=== PATIENT | female | born 1950 | race Caucasian/White ===

== ENCOUNTER → 2017-12-20 | Outpatient (CLI) | payer MEDICARE, OTHER | LOC: LAB 14:30 | PROVIDERS: ATTEND Advanced Practice Midwife | DX: E07.9 Disorder of thyroid, unspecified (principal) | CPT/HCPCS: 36415; 84443 ==

== ENCOUNTER 2018-08-23 15:05 | Emergency (ER) | payer MEDICARE, OTHER ==
--- NOTE | 2018-08-23 15:12 | ER Report ---
History and Physical Time Seen By MD: 15:12 HPI/ROS CHIEF COMPLAINT: Confusion HISTORY OF PRESENT ILLNESS: 67-year-old female patient presents to the emergency room with complaint of contusion. Patient states that she has been feeling "off" today. She states this started about 11:00 when she went to a doctor's appointment. She states when she was there she started having a hard time focusing on what she needed to do. She states that she wanted to talk to the provider about her medications but was unable to recall the names or the dosages of her medications. Patient states that she also has been having episodes were feels like she is dreaming, although she is awake and aware of what's going on around her. She denies any weakness, but states she does have a mild headache and has a hard time recalling things. Patient denies having any fevers, chills, nausea, vomiting or diarrhea. 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 She denies any changes to her medications, she denies any changes in her activity levels. She states she did get up earlier to teach, however she was also going to bed earlier as well. REVIEW OF SYSTEMS: Respiratory: No cough, no dyspnea. Cardiovascular: No chest pain, no palpitations. Gastrointestinal: No vomiting, no abdominal pain. Musculoskeletal: No back pain. Allergies: Coded Allergies: No Known Drug Allergies (Unverified , 08/23/18) Home Meds Active Scripts Thiamine Hcl (VITAMIN B-1) 100 Mg Tablet, 100 MG PO DAILY, #15 TAB Prov:ELLIOT COLON IRVIN 08/23/18 Past Medical/Surgical History Patient has a past medical history of essential tremor, hypothyroidism, depression, skin cancer. Patient has surgical history of left inguinal hernia repair, section 2, left ankle tendon repair, laminectomy, bilateral carpal tunnel release Reviewed Nurses Notes: Yes Constitutional Vital Sign - Last 24 Hours 08/23/18 08/23/18 08/23/18 08/23/18 15:05 15:05 15:10 15:13 Pulse 64 64 B/P (MAP) 174/93 (120) Pulse Ox 90 90 81 08/23/18 08/23/18 08/23/18 08/23/18 15:30 15:40 15:45 15:50 Pulse 64 65 69 B/P (MAP) 201/102 (135) Pulse Ox 95 93 94 08/23/18 08/23/18 08/23/18 08/23/18 15:55 16:00 16:05 16:05 Pulse 69 63 72 72 Pulse Ox 94 93 79 79 08/23/18 08/23/18 08/23/18 08/23/18 16:10 16:14 16:14 16:30 Pulse 65 B/P (MAP) 144/74 (97) 144/74 (97) 157/97 (117) Pulse Ox 95 08/23/18 08/23/18 08/23/18 08/23/18 16:40 17:10 17:40 18:00 Pulse ??? 69 72 B/P (MAP) 138/99 (112) Pulse Ox 99 98 08/23/18 08/23/18 08/23/18 08/23/18 18:30 18:40 18:45 18:50 Pulse 72 70 77 Resp 16 25 17 B/P (MAP) 155/90 (111) Pulse Ox 91 93 89 08/23/18 08/23/18 18:55 19:05 Resp 27 Pulse Ox 87 93 Physical Exam General Appearance: The patient is alert, has no immediate need for airway protection and no current signs of toxicity. Eyes: Pupils equal and round no injection. Extraocular movements intact. Respiratory: Chest is non tender, lungs are clear to auscultation. Cardiac: regular rate and rhythm Gastrointestinal: Abdomen is soft and non tender, no masses, bowel sounds normal. Musculoskeletal: Neck: Neck is supple and non tender. Extremities have full range of motion and are non tender. Skin: No rashes or lesions. Neuro: Patient is alert and oriented 4, cranial nerves II through XII grossly intact. Patient was able to complete 3 word recall 3/3 at zero minutes and 2/3 at 5 minutes. Patient was unable to recall the third word, and even when reminded she was unable to recognize that that was one of the words. Serial sevens patient was unable to remember throughout the exercise that she subtracting by 7. DIFFERENTIAL DIAGNOSIS: After history and physical exam differential diagnosis was considered for altered mental status including but not limited to hypoglycemia, infectious process, electrolyte abnormality, head injury and intoxicants. Medical Decision Making Data Points Result Diagram: 08/23/18 1519 08/23/18 1519 Laboratory Hematology Test 08/23/18 00:00 08/23/18 15:19 08/23/18 15:43 08/23/18 19:09 Serum Alcohol < 10 mg/dl Red Blood Count 4.29 M/uL (4.17-5.56) Mean Corpuscular Volume 100.9 fL (80.0-96.0) Mean Corpuscular Hemoglobin 33.8 pg (26.0-33.0) Mean Corpuscular Hemoglobin Concent 33.5 g/dL (32.0-36.0) Red Cell Distribution Width 13.7 % (11.5-14.5) Mean Platelet Volume 7.8 fL (7.2-11.1) Neutrophils (%) (Auto) 49.6 % (39.4-72.5) Lymphocytes (%) (Auto) 38.9 % (17.6-49.6) Monocytes (%) (Auto) 8.3 % (4.1-12.4) Eosinophils (%) (Auto) 2.3 % (0.4-6.7) Basophils (%) (Auto) 0.9 % (0.3-1.4) Nucleated RBC Relative Count (auto) 0.1 /100WBC Neutrophils # (Auto) 2.5 K/uL (2.0-7.4) Lymphocytes # (Auto) 1.9 K/uL (1.3-3.6) Monocytes # (Auto) 0.4 K/uL (0.3-1.0) Eosinophils # (Auto) 0.1 K/uL (0.0-0.5) Basophils # (Auto) 0.0 K/uL (0.0-0.1) Nucleated RBC Absolute Count (auto) 0.01 K/uL Peripheral Blood Smear No Y/N Prothrombin Time 12.9 seconds (12.0-14.4) Prothromb Time International Ratio 0.97 Activated Partial Thromboplast Time 28 seconds (23-35) Sodium Level 138 mmol/L (137-145) Potassium Level 4.1 mmol/L (3.5-5.0) Chloride Level 108 mmol/L (98-107) Carbon Dioxide Level 26 mmol/L (22-31) Blood Urea Nitrogen 19 mg/dl (7-18) Creatinine 0.70 mg/dl (0.52-1.04) Glomerular Filtration Rate Calc > 60.0 Random Glucose 112 mg/dl (75-110) Calcium Level 9.6 mg/dl (8.4-10.2) Total Bilirubin 0.4 mg/dl (0.2-1.3) Aspartate Amino Transf (AST/SGOT) 29 U/L (0-35) Alanine Aminotransferase (ALT/SGPT) 21 U/L (0-56) Alkaline Phosphatase 91 U/L (0-126) Troponin I < 0.012 ng/ml Total Protein 7.4 g/dl (6.3-8.2) Albumin 4.3 g/dl (3.5-5.0) Urine Color Straw Urine Clarity Clear Urine pH 6.0 pH (4.8-9.5) Urine Specific [place] 1.005 Urine Protein Negative mg/dL (NEGATIVE) Urine Glucose (UA) Negative mg/dL (NEGATIVE) Urine Ketones Negative mg/dL (NEGATIVE) Urine Blood Negative (NEGATIVE) Urine Nitrite Negative (NEGATIVE) Urine Bilirubin Negative (NEGATIVE) Urine Urobilinogen Negative mg/dL (0.2-1.9) Urine Leukocyte Esterase Negative (NEGATIVE) Urine RBC <1 /HPF (0-2/HPF) Urine WBC <1 /HPF (0-5/HPF) Urine Squamous Epithelial Cells Few /LPF (</=FEW) Urine Bacteria Negative /HPF (NONE-FEW) Urine Mucus None /HPF (NONE-FEW) Urine Opiates Screen Negative Urine Barbiturates Screen Positive Ur Tricyclic Antidepressants Screen Negative Urine Phencyclidine Screen Negative Urine Amphetamines Screen Negative Urine Benzodiazepines Screen Negative Urine Cocaine Screen Negative Urine Cannabinoids Screen Negative Chemistry Test 08/23/18 00:00 08/23/18 15:19 08/23/18 15:43 08/23/18 19:09 Serum Alcohol < 10 mg/dl White Blood Count 5.0 k/uL (4.5-11.0) Red Blood Count 4.29 M/uL (4.17-5.56) Hemoglobin 14.5 g/dL (12.0-16.0) Hematocrit 43.3 % (34.0-47.0) Mean Corpuscular Volume 100.9 fL (80.0-96.0) Mean Corpuscular Hemoglobin 33.8 pg (26.0-33.0) Mean Corpuscular Hemoglobin Concent 33.5 g/dL (32.0-36.0) Red Cell Distribution Width 13.7 % (11.5-14.5) Platelet Count 226 K/uL (150-450) Mean Platelet Volume 7.8 fL (7.2-11.1) Neutrophils (%) (Auto) 49.6 % (39.4-72.5) Lymphocytes (%) (Auto) 38.9 % (17.6-49.6) Monocytes (%) (Auto) 8.3 % (4.1-12.4) Eosinophils (%) (Auto) 2.3 % (0.4-6.7) Basophils (%) (Auto) 0.9 % (0.3-1.4) Nucleated RBC Relative Count (auto) 0.1 /100WBC Neutrophils # (Auto) 2.5 K/uL (2.0-7.4) Lymphocytes # (Auto) 1.9 K/uL (1.3-3.6) Monocytes # (Auto) 0.4 K/uL (0.3-1.0) Eosinophils # (Auto) 0.1 K/uL (0.0-0.5) Basophils # (Auto) 0.0 K/uL (0.0-0.1) Nucleated RBC Absolute Count (auto) 0.01 K/uL Peripheral Blood Smear No Y/N Prothrombin Time 12.9 seconds (12.0-14.4) Prothromb Time International Ratio 0.97 Activated Partial Thromboplast Time 28 seconds (23-35) Glomerular Filtration Rate Calc > 60.0 Calcium Level 9.6 mg/dl (8.4-10.2) Total Bilirubin 0.4 mg/dl (0.2-1.3) Aspartate Amino Transf (AST/SGOT) 29 U/L (0-35) Alanine Aminotransferase (ALT/SGPT) 21 U/L (0-56) Alkaline Phosphatase 91 U/L (0-126) Troponin I < 0.012 ng/ml Total Protein 7.4 g/dl (6.3-8.2) Albumin 4.3 g/dl (3.5-5.0) Urine Color Straw Urine Clarity Clear Urine pH 6.0 pH (4.8-9.5) Urine Specific [place] 1.005 Urine Protein Negative mg/dL (NEGATIVE) Urine Glucose (UA) Negative mg/dL (NEGATIVE) Urine Ketones Negative mg/dL (NEGATIVE) Urine Blood Negative (NEGATIVE) Urine Nitrite Negative (NEGATIVE) Urine Bilirubin Negative (NEGATIVE) Urine Urobilinogen Negative mg/dL (0.2-1.9) Urine Leukocyte Esterase Negative (NEGATIVE) Urine RBC <1 /HPF (0-2/HPF) Urine WBC <1 /HPF (0-5/HPF) Urine Squamous Epithelial Cells Few /LPF (</=FEW) Urine Bacteria Negative /HPF (NONE-FEW) Urine Mucus None /HPF (NONE-FEW) Urine Opiates Screen Negative Urine Barbiturates Screen Positive Ur Tricyclic Antidepressants Screen Negative Urine Phencyclidine Screen Negative Urine Amphetamines Screen Negative Urine Benzodiazepines Screen Negative Urine Cocaine Screen Negative Urine Cannabinoids Screen Negative Coagulation Test 08/23/18 15:19 Prothrombin Time 12.9 seconds Prothromb Time International Ratio 0.97 Activated Partial Thromboplast Time 28 seconds Toxicology Test 08/23/18 00:00 08/23/18 15:43 Serum Alcohol < 10 mg/dl Urine Opiates Screen Negative Urine Barbiturates Screen Positive Ur Tricyclic Antidepressants Screen Negative Urine Phencyclidine Screen Negative Urine Amphetamines Screen Negative Urine Benzodiazepines Screen Negative Urine Cocaine Screen Negative Urine Cannabinoids Screen Negative Urinalysis Test 08/23/18 15:43 Urine Color Straw Urine Clarity Clear Urine pH 6.0 pH (4.8-9.5) Urine Specific [place] 1.005 Urine Protein Negative mg/dL (NEGATIVE) Urine Glucose (UA) Negative mg/dL (NEGATIVE) Urine Ketones Negative mg/dL (NEGATIVE) Urine Blood Negative (NEGATIVE) Urine Nitrite Negative (NEGATIVE) Urine Bilirubin Negative (NEGATIVE) Urine Urobilinogen Negative mg/dL (0.2-1.9) Urine Leukocyte Esterase Negative (NEGATIVE) Urine RBC <1 /HPF (0-2/HPF) Urine WBC <1 /HPF (0-5/HPF) Urine Squamous Epithelial Cells Few /LPF (</=FEW) Urine Bacteria Negative /HPF (NONE-FEW) Urine Mucus None /HPF (NONE-FEW) EKG/Imaging Imaging Study: MRI of the brain without and with gadolinium contrast. Indication: Confusion, headache Comparison study: None Contrast used: 15 mL MultiHance gadolinium contrast Technique: Multiplanar MRI sequences were obtained through the brain before and after the administration of gadolinium contrast. The examination demonstrates no evidence of acute intracranial hemorrhage. There is no evidence of extra-axial collection or hydrocephalus. There are scattered areas of high T2-weighted signal present within the central and peripheral supratentorial white matter. These areas are nonspecific in appearance. The pituitary gland is unremarkable in appearance. There is no evidence of abnormality of the pineal gland. A diffusion-weighted sequence was performed and demonstrates no evidence of active ischemia. There is no evidence of active infarct The orbits are unremarkable. The paranasal sinuses are unremarkable Following the administration of gadolinium contrast, there is no abnormal intracranial contrast enhancement. IMPRESSION: No acute intracranial abnormality identified. Specifically, there is no evidence of active ischemia. Report Dictated By: Jarett Cancino at 08/23/2018 5:45 PM Report E-Signed By: Jarett Cancino at 08/23/2018 5:50 PM Exam type: CHEST PA LAT History: Confusion Comparison: None. Findings: The lungs are free of acute effusions, infiltrates or edema. There is no evidence of a pneumothorax or pneumomediastinum. The cardiac silhouette is normal in size. The trachea is in midline. There are mild spondylotic changes of the thoracic spine. IMPRESSION: 1. No acute cardiopulmonary process is seen Report Dictated By: Audra Del Cid MD at 08/23/2018 4:09 PM Report E-Signed By: Audra Del Cid MD at 08/23/2018 4:11 PM EXAMINATION: CT Head without intravenous contrast HISTORY: Confusion. TECHNIQUE: Axial images were obtained from the skull base to the vertex without intravenous contrast. Sagittal and coronal reformatted images are also submitted. One of the following dose optimization techniques was utilized in the performance of this exam: Automated exposure control; adjustment of the mA and/or kV according to the patient's size; or use of an iterative reconstruction technique. Specific details can be referenced in the facility's radiology CT exam operational policy. COMPARISON: None available. FINDINGS: Brain volume: Normal. Ventricles: Negative. Acute ischemic changes: None. Hemorrhage: None. Masses / edema: None. Cruz-white: Negative. White matter: Negative. Vessels: Negative. Extra-axial: Negative. Calvarium / skull base: Small radiopaque foreign bodies in the bilateral frontal bone (series 3, images 60 and 62). Visualized sinuses / orbits: Leftward nasal septal deviation and spurring. IMPRESSION: 1. No acute intracranial abnormality. 2. Small radiopaque foreign bodies in the bilateral frontal bone (series 3, images 60 and 62). 3. Leftward nasal septal deviation and spurring. Report Dictated By: Richar Swanson MD at 08/23/2018 4:08 PM Report E-Signed By: Richar Swanson MD at 08/23/2018 4:15 PM ED Course/Re-evaluation ED Course Patient was admitted to an exam room, history and physical were obtained. Differential diagnoses were considered. On examination lungs are clear, heart was regular, abdomen soft nontender. Cranial nerves II through XII grossly intact. Patient did have some difficulty with short-term memory. She was able to complete 3 word recall 3/3 at zero minutes and 2/3 at 5 minutes. Patient was unable to recall the third word while I gave her the third word she said "No, that's no it". Patient also became confused when doing serial sevens, forgetting that she is supposed tract by 7. Patient was alert and oriented 4. A CBC, CMP, urinalysis, EKG, troponin, CT scan of the head were done. The labs were unremarkable except the patient had an elevated MCV. I discussed this with the patient and she states that she believes that that has been like that for years. With the patient having the problems with short-term memory and negative CT scan I did opt to go ahead and do an MRI of the brain. Results of the MRI were negative. I discussed findings with the patient. I did call and talk with neurology, Dr. Sandy, at [facility]. His recommendation was to go ahead and look for reversible causes short-term memory loss, such as B-12, TSH, folate. He recommended treating with thiamine. I did discuss the case with Dr. Sawyer, hospitalist, about admission for monitoring. He feels there is anything to monitor, stating there is no treatment that was going to be given. Patient had already made it clear that she would prefer to be discharged to stay in a hotel. Dr. Harrington felt that would be reasonable thing to do at this time. He recommended going ahead and treating her with thiamine, checking labs. I discussed this with the patient who verbalized understanding and agreement. We did discuss decreasing her primidone to 2 tablets twice a day as opposed to 3 times a day. She states that they're hoping to get her into a clinical trial and would prefer to hold off any medication changes. Decision to Disposition Date: Aug 23, 2018 Decision to Disposition Time: 19:20 Depart Departure Latest Vital Signs Vital Signs Date Time Temp Pulse Resp B/P (MAP) Pulse Ox O2 Delivery O2 Flow Rate FiO2 08/23/18 19:05 93 08/23/18 18:55 27 08/23/18 18:50 77 08/23/18 18:30 155/90 (111) Impression: Primary Impression: Poor short term memory Condition: Condition Unchanged Disposition: HOME OR SELF-CARE New Scripts Thiamine Hcl (VITAMIN B-1) 100 Mg Tablet 100 MG PO DAILY, #15 TAB Prov: ELLIOT COLON 08/23/18 Patient Instructions: GENERAL ER DISCHARGE INSTRUCTIONS Additional Instructions: Call and talk with your neurologist about this. Discuss about the Primidone and alcohol and this episode. Return to the ER if condition worsens. Take the Thiamine as directed. Follow up with your primary care provider in the next 1-2 weeks. ELLIOT COLON Aug 23, 2018 15:12
[2018-08-23] MEDS ORDERED: NS(*) 0.9% 500 ML BAG 500 ML IV ONE (15:32)
[2018-08-23 15:49] LABS: PLATELET COUNT, AUTOMATED 226 K/uL (150-450)
[2018-08-23 15:52] LABS: INR 0.97
--- NOTE | 2018-08-23 15:57 | EKG ---
FACILITY: [facility] - [place] PATIENT NAME: KAEL AKINS : [id number] MR: [id number] V: [id number] EXAM DATE: ORDERING PHYSICIAN: ELLIOT COLON TECHNOLOGIST: Test Reason : low potassium Blood Pressure : / mmHG Vent. Rate : 071 BPM Atrial Rate : 071 BPM P-R Int : 170 ms QRS Dur : 072 ms QT Int : 426 ms P-R-T Axes : 065 024 050 degrees QTc Int : 462 ms Normal sinus rhythm Normal ECG No previous ECGs available Confirmed by MÓNICA PLUMMER ([id number]) on 08/24/2018 1:15:39 AM Referred By: Confirmed By:MÓNICA PLUMMER
[2018-08-23] MEDS ORDERED: ONDANSETRON 4 MG/2 ML VIAL IVP ONE (16:00)
--- NOTE | 2018-08-23 16:16 | RADIOLOGY IMAGING REPORT ---
FACILITY: [facility] PATIENT NAME: Frieda Conner : 1950 MR: [id number] V: [id number] EXAM DATE: ORDERING PHYSICIAN: ELLIOT COLON TECHNOLOGIST: Location: [facility] [place] Patient: Frieda Conner : 1950 Visit/Account:[id number] Date of Sevice: 08/23/2018 Exam type: CHEST PA LAT History: Confusion Comparison: None. Findings: The lungs are free of acute effusions, infiltrates or edema. There is no evidence of a pneumothorax or pneumomediastinum. The cardiac silhouette is normal in size. The trachea is in midline. There a re mild spondylotic changes of the thoracic spine. IMPRESSION: 1. No acute cardiopulmonary process is seen Report Dictated By: Audra Del Cid MD at 08/23/2018 4:09 PM Report E-Signed By: Audra Del Cid MD at 08/23/2018 4:11 PM WSN:[id number]
--- NOTE | 2018-08-23 16:20 | RADIOLOGY IMAGING REPORT ---
FACILITY: [facility] - [place] PATIENT NAME: Frieda Conner : 1950 MR: [id number] V: [id number] EXAM DATE: ORDERING PHYSICIAN: ELLIOT COLON TECHNOLOGIST: Location: [facility] - [place] Patient: Frieda Conner : 1950 Visit/Account:[id number] Date of Sevice: 08/23/2018 EXAMINATION: CT Head without intravenous contrast HISTORY: Confusion. TECHNIQUE: Axial images were obtained from the skull base to the vertex without intravenous contrast . Sagittal and coronal reformatted images are also submitted. One of the following dose optimization techniques was utilized in the performance of this exam: Autom ated exposure control; adjustment of the mA and/or kV according to the patient's size; or use of an i terative reconstruction technique. Specific details can be referenced in the facility's radiology C T exam operational policy. COMPARISON: None available. FINDINGS: Brain volume: Normal. Ventricles: Negative. Acute ischemic changes: None. Hemorrhage: None. Masses / edema: None. Cruz-white: Negative. White matter: Negative. Vessels: Negative. Extra-axial: Negative. Calvarium / skull base: Small radiopaque foreign bodies in the bilateral frontal bone (series 3, harish ges 60 and 62). Visualized sinuses / orbits: Leftward nasal septal deviation and spurring. IMPRESSION: 1. No acute intracranial abnormality. 2. Small radiopaque foreign bodies in the bilateral frontal bone (series 3, images 60 and 62). 3. Leftward nasal septal deviation and spurring. Report Dictated By: Richar Swanson MD at 08/23/2018 4:08 PM Report E-Signed By: Richar Swanson MD at 08/23/2018 4:15 PM WSN:[id number]
[2018-08-23] MEDS ORDERED: GADOBENATE 529MG/1ML 15ML VIAL IVP ONE (16:42)
--- NOTE | 2018-08-23 17:53 | RADIOLOGY IMAGING REPORT ---
FACILITY: [facility] PATIENT NAME: Frieda Conner : 1950 MR: [id number] V: [id number] EXAM DATE: ORDERING PHYSICIAN: ELLIOT COLON TECHNOLOGIST: Location: [facility] Patient: Frieda Conner : 1950 Visit/Account:[id number] Date of Sevice: 08/23/2018 Study: MRI of the brain without and with gadolinium contrast. Indication: Confusion, headache Comparison study: None Contrast used: 15 mL MultiHance gadolinium contrast Technique: Multiplanar MRI sequences were obtained through the brain before and after the administrat ion of gadolinium contrast. The examination demonstrates no evidence of acute intracranial hemorrhage. There is no evidence of ex tra-axial collection or hydrocephalus. There are scattered areas of high T2-weighted signal present within the central and peripheral suprat entorial white matter. These areas are nonspecific in appearance. The pituitary gland is unremarkable in appearance. There is no evidence of abnormality of the pineal gland. A diffusion-weighted sequence was performed and demonstrates no evidence of active ischemia. There is no evidence of active infarct The orbits are unremarkable. The paranasal sinuses are unremarkable Following the administration of gadolinium contrast, there is no abnormal intracranial contrast enhan cement. IMPRESSION: No acute intracranial abnormality identified. Specifically, there is no evidence of activ e ischemia. Report Dictated By: Jarett Cancino at 08/23/2018 5:45 PM Report E-Signed By: Jarett Cancino at 08/23/2018 5:50 PM WSN:[id number]
[2018-08-23 18:30] VITALS: BP 155/90
[2018-08-23] MEDS ORDERED: THIAMINE HCL 100 MG TAB PO ONE (18:55)
[2018-08-23] MEDS ORDERED: THIA100T20 PO (19:23)
== END 2018-08-23 19:35 | disposition home or self-care (01) ==
LOC: ER 15:19
DX: R41.3 Other amnesia (principal); E87.6 Hypokalemia
CPT/HCPCS: 36415; 70450; 70553; 71046; 80305; 81001; 82607; 82746; 84443; 84484; 85025; 85610; 85730; 93005; 96360; 99284; A9270; A9577; G0480; J7040; 80320; 82040; 82247; 82310; 82374; 82435; 82565; 82947; 84075; 84132; 84155; 84295; 84450; 84460; 84520